=== PATIENT | female | born 1955 | race Caucasian/White ===

== ENCOUNTER → 2016-08-18 | Outpatient (CLI) | payer BC ==
[~2016-08-18] MED LIST: ACET-1256 PO; ALBI1INJ2 SC; ASPCH81X PO; ATV/1 PO; CLOP1TAB15 PO; DOCU1TAB6 PO; ERGO1CAP35 PO; FURO-85 PO; HYDR-5688 PO; INSDGI SC; INSPMPNVLG; ISOS30TA35 PO; ISOS60TA25 PO; LOSA1TAB PO; METF1000 PO; METO-157 PO; METO1TAB69 PO; NTRGSL/4 UT; NVLGI/PEN SC; ONDA8TAB6 PO; PANT1TAB48 PO; ROSU40TA PO; SERT-234 PO; SIME1CAP11 PO
== END | disposition home or self-care (01) ==
LOC: C.PATHSPEC 13:11
PROVIDERS: ATTEND Dermatology
DX: D23.5 Other benign neoplasm of skin of trunk (principal); L81.4 Other melanin hyperpigmentation; L57.8 Other skin changes due to chronic exposure to nonionizing radiation

== ENCOUNTER → 2016-10-14 | Outpatient (CLI) | payer BC ==
[~2016-10-14] MED LIST changes: +GADAVIST IV PRN
--- NOTE | 2016-10-14 16:40 | DIAGNOSTIC IMAGING REPORT ---
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 Appearance of the pituitary including bulky postprocedural appearance to the left lateral aspect of the pituitary with associated signal of the signal in homogeneity is similar. There are no new or interval findings. There is no displacement of the pituitary stock or optic chiasm. Negative linear enhancing region is similar. There is an underlying component of postprocedural fat necrosis. IMPRESSION: 1. Stable postprocedural changes to the sella and parasellar region. 2. Negative enhancing component of the inferior inferolateral aspect of the left sella and cavernous sinus is similar to prior. 3. No new or interval process. Electronically signed by: Christopher Myers M.D. 10/14/2016 4:39 PM Dictated Date/Time: 10/14/2016 4:34 PM
== END | disposition home or self-care (01) ==
LOC: C.MRI 15:12
PROVIDERS: ATTEND Internal Medicine Endocrinology, Diabetes & Metabolism
DX: E23.7 Disorder of pituitary gland, unspecified (principal)

== ENCOUNTER → 2016-10-29 | Outpatient (CLI) | payer BC ==
[~2016-10-29] MED LIST changes: -GADAVIST IV PRN; +METO100T44 PO; -METO1TAB69 PO
[2016-10-29 13:06] LABS: URIC ACID 2.4 mg/dl (2.6-7.2)
== END ==
LOC: C.LAB1850 11:06
PROVIDERS: ATTEND Internal Medicine Endocrinology, Diabetes & Metabolism
DX: N20.0 Calculus of kidney (principal); I10 Essential (primary) hypertension; R82.99 Other abnormal findings in urine

== ENCOUNTER → 2016-11-06 | Outpatient (CLI) | payer BC ==
[2016-11-06 13:59] LABS: CALCIUM URINE 14.8 mg/dl
== END | disposition home or self-care (01) ==
LOC: C.LABMFLN 08:54
PROVIDERS: ATTEND Internal Medicine Endocrinology, Diabetes & Metabolism
DX: M81.0 Age-related osteoporosis without current pathological fracture (principal)

== ENCOUNTER → 2016-12-07 | Outpatient (CLI) | payer BC ==
[2016-12-07 15:48] LABS: HEMATOCRIT 39.5 % (37-47); MEAN CELL VOLUME 83.7 fL (80-100); MEAN CORPUSCULAR HEMOGLOBIN 28.2 pg (25-34); MEAN CORPUSCULAR HGB CONC 33.7 g/dl (32-36); MEAN PLATELET VOLUME 10.6 fL (7.4-10.4); PLATELET COUNT 314 K/uL (130-400); RED BLOOD COUNT 4.72 M/uL (4.2-5.4); WHITE BLOOD COUNT 8.34 K/uL (4.8-10.8)
[2016-12-07 16:13] LABS: POTASSIUM 3.3 mmol/L (3.5-5.1)
== END | disposition home or self-care (01) ==
LOC: C.LAB 14:45
PROVIDERS: ATTEND Orthopaedic Surgery
DX: Z01.812 Encounter for preprocedural laboratory examination (principal); M65.4 Radial styloid tenosynovitis [de Quervain]

== ENCOUNTER → 2016-12-15 | Day surgery (SDC) | payer BC ==
[2016-12-10 09:10] VITALS: Ht 157.5 cm; Wt 77.3 kg
[~2016-12-15] VITALS: Ht 157.5 cm; Wt 77.3 kg
[~2016-12-15] MED LIST changes: +ATROPINE SULFATE 0.1 MG/ML 5ML SYR IV PRN; +BUPIVACAINE 0.5 % 5 MG/1 ML PF 10ML VIAL ONE; +CEFAZOLIN 1000MG/55 ML D5W IV SCH; -DOCU1TAB6 PO; +EpHEDrine SULFATE INJ 50 MG/ML AMP IV PRN; +FENTANYL CITRATE INJ 50 MCG/1 ML 2 ML VIAL ONE; -INSPMPNVLG; -ISOS30TA35 PO; +LACTATED RINGER'S 1000ML 1,000 ML IV SCH; +LIDOCAINE HCL 1% 20 ML VIAL ONE; +MIDAZOLAM HCL 1 MG/ML 2ML VIAL ONE; +NURSING VERBAL MED ORDER ONE; +ONDANSETRON INJ 2 MG/ML 2 ML VIAL IV PRN; +ONDANSETRON INJ 2 MG/ML 2 ML VIAL ONE; +OXYCODONE/ACETAMINOPHEN 5-325 TAB PO PRN; -PANT1TAB48 PO; +PROPOFOL IV EMULSION 10 MG/ML 20 ML VIAL IV ONE; +SODIUM CHLORIDE 0.9% 1000ML 1,000 ML IV SCH
--- NOTE | 2016-12-15 06:41 | History & Physical Bridge - [place] ---
H&P Re-Evaluation Bridge Note: I have examined the patient, reviewed the History & Physical and in the interval since the performance of the History & Physical I have noted the following changes of clinical significance: No changes noted
--- NOTE | 2016-12-15 07:37 | [facility] Post Operative Brief Note ---
Immediate Operative Summary Operative Date December 15, 2016. Pre-Operative Diagnosis Right Dequervain's Disease Post-Operative Diagnosis same as preop Procedure(s) Performed Right Dequervain's Release Surgeon Dr. Gusman Barrel Endshaker Adjuster Surgeon(s) MICHAEL Okeefe Estimated Blood Loss 0ml Findings ABOVE Specimens none per surgeon Anesthesia LOCAL IV SEDATION Complication(s) None Disposition
[2016-12-15 07:40] VITALS: TEMP 36.3
--- NOTE | 2016-12-15 07:43 | Discharge Instructions-SurgCtr ---
Discharge Instructions Date of Service December 15, 2016. Visit Reason for Visit: Right Dequervain's Disease Discharge Discharge Diagnosis / Problem: SAME ABOVE Discharge Goals Goal(s): Decrease discomfort, Improve function Medications Stopped Medications Name(s): Per pt stopped metformin wednesday as instructed. Activity Recommendations Activity Limitations: as noted below Lifting Limitations: gradually increase as tolerated Exercise/Sports Limitations: until after follow-up appointment Shower/Bathe: keep incision dry Anesthesia . Post Anesthesia Instructions: If you have had General Anesthesia or IV Sedation: * Do not drive today. * Resume driving when surgeon permits. * Do not make important decisions or sign legal documents today. * Call surgeon for: 1. Temperature elevations greater than 101 degrees F. 2. Uncontrollable pain. 3. Excessive bleeding. 4. Persistent nausea and vomiting. 5. Medication intolerance (nausea, vomiting or rash). * For nausea and vomiting use only clear liquids such as: tea, soda, bouillon until nausea subsides, then gradually increase diet as tolerated. * If you have any concerns or questions, call your surgeon's office. If physician is unavailable and it is an emergency, call 911 or go to the nearest emergency room. . Instructions / Follow-Up Instructions / Follow-Up MEDICATIONS: * Resume previous medications unless instructed otherwise by your surgeon. * Always take pain medication on a full stomach or with food to avoid upset stomach. * Do not drink alcohol or drive while taking narcotics. * Ibuprofen or Tylenol may be taken if narcotic not needed. SPECIAL CARE INSTRUCTIONS: __ None _X_ Keep extremity elevated and iced x 48 hours; apply ice 20-30 minutes 8-10 times/day. May remove at night. __ Sling __24 hrs/day __ Remove at night __ Shoulder Immobilizer __ 24 hrs/day __ Remove at night X_ Dressing __ Maintain until seen in office, may shower with plastic over site _X_ Remove dressings in 48-72 hours and then may shower _X_ Cover incisions with band-aids after showering __ Do not remove steri-strips Call physician if chills or temperature rises above 102 degrees or pain unrelieved by prescribed pain medications at . . Diet Recommendations Home Diet: resume previous diet Procedures Procedures Performed: Right Dequervain's Release Pending Studies Studies pending at discharge: no Medical Emergencies . Who to Call and When: Medical Emergencies: If at any time you feel your situation is an emergency, please call 911 immediately. . Non-Emergent Contact Non-Emergency issues call your: Primary Care Provider . . "Provider Documentation" section prepared by Jose Daniel Shepherd. .
--- NOTE | 2016-12-15 07:48 | Anesthesiology Progress Note ---
Anesthesia Post Op Note Date & Time December 15, 2016 at 07:48 Vital Signs Pain Intensity: 0 Vital Signs Past 12 Hours Date Time Temp Pulse Resp B/P Pulse Ox O2 Delivery O2 Flow Rate FiO2 12/15/16 06:42 36.3 69 20 131/80 95 Room Air Notes Mental Status: alert / awake / arousable, participated in evaluation Pt Amnestic to Procedure: Yes Nausea / Vomiting: adequately controlled Pain: adequately controlled Airway Patency, RR, SpO2: stable & adequate BP & HR: stable & adequate Hydration State: stable & adequate Anesthetic Complications: no major complications apparent
--- NOTE | 2016-12-15 07:52 | Anesthesia Progress Nt - [facility] ---
Anesthesia Post Op Note Date & Time December 15, 2016 at 07:52 Vital Signs Pain Intensity: 0 Vital Signs Past 12 Hours Date Time Temp Pulse Resp B/P Pulse Ox O2 Delivery O2 Flow Rate FiO2 12/15/16 07:40 36.3 92 12 114/72 96 Room Air 12/15/16 06:42 36.3 69 20 131/80 95 Room Air Notes Mental Status: alert / awake / arousable, participated in evaluation Pt Amnestic to Procedure: Yes Nausea / Vomiting: adequately controlled Pain: adequately controlled Airway Patency, RR, SpO2: stable & adequate BP & HR: stable & adequate Hydration State: stable & adequate Anesthetic Complications: no major complications apparent
[2016-12-15 08:15] VITALS: BP 120/75; PULSE 83; O2SAT 98
--- NOTE | 2016-12-15 08:27 | OPERATIVE REPORT ---
DATE OF OPERATION: 12/15/2016 PREOPERATIVE DIAGNOSIS: Right chronic de Quervain's syndrome. POSTOPERATIVE DIAGNOSIS: Same. PROCEDURE: Release first dorsal compartment, right wrist. SURGEON: Dr. Gusman. SPREADER: MICHAEL Shepherd. ANESTHESIOLOGIST: Dr. Navarro. ANESTHESIA: Local with IV sedation. DRAINS: None. COMPLICATIONS: None. CONDITION: The patient tolerated the procedure well and returned to the recovery room in apparent satisfactory condition. INDICATIONS FOR SURGERY: Elizabeth is a 61-year-old female well-known to me having a left de Quervain's syndrome surgery before, who presents back with her right wrist. She has had some shots as conservative care. Would like to go ahead and proceed with surgery. Procedure, expected outcomes and side effects, and risks were all explained in detail. PROCEDURE: The patient was taken to the OR at which time she was placed supine on the operating table, and given IV sedation by the anesthesia department. Right arm and hand was prepped and draped in usual sterile fashion for surgery. We marked out a transverse incision over the first dorsal compartment and exsanguinated the arm, put a forearm tourniquet up to 250 mmHg. Using a 15-blade, we incised the skin and dissected down to the first dorsal compartment. Using a 15-blade and tenotomy scissors, we decompressed the compartment. There was a lot of synovium thickened tissue around the tendons. Each tendon was identified and made sure there was no individual septi and septa between them. There was a bit of fluid as we released the compartment initially. Wound then was copiously irrigated. The skin was closed with interrupted 4-0 nylon sutures. Marcaine without epinephrine was placed in skin edges. Placed a sterile dressing of Xeroform, 4 x 4, Sof-Rol and Jonathan bandage and returned back to recovery room in apparent satisfactory condition. I attest to the content of the Intraoperative Record and any orders documented therein. Any exceptio ns are noted below.
== END | disposition home or self-care (01) ==
LOC: X.SURG 06:32
PROVIDERS: ATTEND Orthopaedic Surgery
DX: M65.4 Radial styloid tenosynovitis [de Quervain] (principal); I10 Essential (primary) hypertension; E11.9 Type 2 diabetes mellitus without complications; Z79.02 Long term (current) use of antithrombotics/antiplatelets; Z98.890 Other specified postprocedural states

== ENCOUNTER → 2017-01-01 | Outpatient (CLI) | payer BC ==
[~2017-01-01] MED LIST changes: -ATROPINE SULFATE 0.1 MG/ML 5ML SYR IV PRN; -BUPIVACAINE 0.5 % 5 MG/1 ML PF 10ML VIAL ONE; -CEFAZOLIN 1000MG/55 ML D5W IV SCH; -EpHEDrine SULFATE INJ 50 MG/ML AMP IV PRN; -FENTANYL CITRATE INJ 50 MCG/1 ML 2 ML VIAL ONE; -LACTATED RINGER'S 1000ML 1,000 ML IV SCH; -LIDOCAINE HCL 1% 20 ML VIAL ONE; -MIDAZOLAM HCL 1 MG/ML 2ML VIAL ONE; -NURSING VERBAL MED ORDER ONE; -ONDANSETRON INJ 2 MG/ML 2 ML VIAL IV PRN; -ONDANSETRON INJ 2 MG/ML 2 ML VIAL ONE; -OXYCODONE/ACETAMINOPHEN 5-325 TAB PO PRN; -PROPOFOL IV EMULSION 10 MG/ML 20 ML VIAL IV ONE; -SODIUM CHLORIDE 0.9% 1000ML 1,000 ML IV SCH
== END | disposition home or self-care (01) ==
LOC: C.LABMFLN 08:01
PROVIDERS: ATTEND Internal Medicine Endocrinology, Diabetes & Metabolism
DX: E23.7 Disorder of pituitary gland, unspecified (principal)

== ENCOUNTER → 2017-03-02 | Outpatient (CLI) | payer BC ==
[~2017-03-02] MED LIST changes: -METO100T44 PO; +METO1TAB69 PO
[2017-03-02 13:27] LABS: ESTIMATED AVERAGE GLUCOSE 246 mg/dl; HA1C FLAG Normal (Normal)
[2017-03-02 13:30] LABS: BLOOD UREA NITROGEN 10 mg/dl (7-18); CALCIUM 8.4 mg/dl (8.5-10.1); CARBON DIOXIDE 27 mmol/L (21-32); CHLORIDE 106 mmol/L (98-107); CREATININE 0.77 mg/dl (0.60-1.20); GLUCOSE 232 mg/dl (70-99); MAGNESIUM 2.3 mg/dl (1.8-2.4); POTASSIUM 3.6 mmol/L (3.5-5.1); SODIUM 140 mmol/L (136-145)
[2017-03-02 13:34] LABS: CHOLESTEROL 56 mg/dl (0-200); CHOLESTEROL/HDL RATIO 2.4; HDL CHOLESTEROL 23 mg/dl; LDL CHOLESTEROL CALCULATED 4 mg/dl; TRIGLYCERIDES 143 mg/dl (0-150); VERY LOW DENSITY LIPOPROT CALC 29 mg/dl
== END | disposition home or self-care (01) ==
LOC: C.LABMFLN 11:29
PROVIDERS: ATTEND Internal Medicine Endocrinology, Diabetes & Metabolism
DX: M81.0 Age-related osteoporosis without current pathological fracture (principal); E11.9 Type 2 diabetes mellitus without complications; E78.5 Hyperlipidemia, unspecified; N20.0 Calculus of kidney; I25.10 Atherosclerotic heart disease of native coronary artery without angina pectoris; I51.9 Heart disease, unspecified

== ENCOUNTER → 2017-04-05 | Outpatient (CLI) | payer BC ==
[2017-04-05 13:42] LABS: BLOOD UREA NITROGEN 11 mg/dl (7-18); BUN/CREATININE RATIO 11.7 (10-20); CREATININE 0.92 mg/dl (0.60-1.20)
== END | disposition home or self-care (01) ==
LOC: C.LABMFLN 09:26
PROVIDERS: ATTEND Urology
DX: R31.0 Gross hematuria (principal)

== ENCOUNTER → 2017-04-07 | Outpatient (CLI) | payer BC ==
[~2017-04-07] MED LIST changes: +OPTIRAY 320 IV PRN
--- NOTE | 2017-04-07 17:09 | DIAGNOSTIC IMAGING REPORT ---
CT OF THE ABDOMEN AND PELVIS WITH AND WITHOUT CONTRAST HEMATURIA PROTOCOL CLINICAL HISTORY: Gross hematuria. COMPARISON STUDY: CT of the abdomen and pelvis January 08, 2017. TECHNIQUE: Unenhanced and split bolus phase imaging of the abdomen and pelvis was performed. Injection of 116 cc Optiray 320 IV was uneventful. A dose lowering technique was utilized adhering to the principles of ALARA. CT DOSE: 1923.38 mGycm FINDINGS: Small bilateral renal calculi measure up to 3 mm. There are no ureteral calculi. No hydronephrosis or hydroureter is present. Note is made of a 1.1 cm cyst arising from the upper pole of the left kidney. There is no solid renal lesion. No upper tract urothelial lesion is identified. No bladder mass is identified although the bladder is incompletely opacified. There is no biliary ductal dilatation status post cholecystectomy. Prominent upper abdominal lymph nodes are unchanged since exam of February 03, 2012. There may be fatty infiltration of the liver. The spleen, adrenal glands and pancreas are unremarkable. There is no pancreatic ductal dilatation. Mild mesenteric infiltration with small associated lymph nodes is unchanged. There is sigmoid diverticulosis without evidence for acute diverticulitis. There are no suspicious osseous lesions. There is no ascites. IMPRESSION: 1. No upper tract urothelial lesion. Suboptimal evaluation of the bladder given incomplete opacification but no bladder mass identified. 2. Small bilateral renal calculi. No ureteral calculi or hydronephrosis. 3. No acute process within the abdomen or pelvis. Electronically signed by: Deepak Liang M.D. 04/07/2017 5:08 PM Dictated Date/Time: 04/07/2017 5:00 PM
== END | disposition home or self-care (01) ==
LOC: C.CTS 16:00
PROVIDERS: ATTEND Urology
DX: R31.0 Gross hematuria (principal)

== ENCOUNTER → 2017-04-08 | Outpatient (CLI) | payer BC ==
[~2017-04-08] MED LIST changes: -OPTIRAY 320 IV PRN
== END | disposition home or self-care (01) ==
LOC: C.PATHSPEC 17:43
PROVIDERS: ATTEND Urology
DX: N30.21 Other chronic cystitis with hematuria (principal)

== ENCOUNTER → 2017-04-29 | Outpatient (CLI) | payer BC ==
[2017-04-29 13:46] LABS: ALT/SGPT 40 U/L (12-78); AST/SGOT 40 U/L (15-37); BLOOD UREA NITROGEN 10 mg/dl (7-18); BUN/CREATININE RATIO 10.4 (10-20); CALCIUM 9.6 mg/dl (8.5-10.1); CARBON DIOXIDE 30 mmol/L (21-32); CHLORIDE 99 mmol/L (98-107); GLUCOSE 133 mg/dl (70-99); POTASSIUM 3.2 mmol/L (3.5-5.1); SODIUM 138 mmol/L (136-145)
[2017-04-29 13:49] LABS: ALKALINE PHOSPHATASE 98 U/L (45-117)
== END | disposition home or self-care (01) ==
LOC: C.LABMFLN 10:07
PROVIDERS: ATTEND Internal Medicine Endocrinology, Diabetes & Metabolism
DX: I10 Essential (primary) hypertension (principal); M81.0 Age-related osteoporosis without current pathological fracture; E53.8 Deficiency of other specified B group vitamins

== ENCOUNTER → 2017-06-21 | Outpatient (CLI) | payer BC ==
[~2017-06-21] MED LIST changes: -HYDR-5688 PO; +METO100T44 PO; -METO1TAB69 PO
[2017-06-21 13:07] LABS: ESTIMATED AVERAGE GLUCOSE 246 mg/dl; HA1C FLAG Normal (Normal)
[2017-06-21 13:18] LABS: ALT/SGPT 34 U/L (12-78); BLOOD UREA NITROGEN 16 mg/dl (7-18); BUN/CREATININE RATIO 19.7 (10-20); CALCIUM 9.1 mg/dl (8.5-10.1); CARBON DIOXIDE 29 mmol/L (21-32); CHLORIDE 101 mmol/L (98-107); CREATININE 0.79 mg/dl (0.60-1.20); GLUCOSE 134 mg/dl (70-99); MAGNESIUM 2.3 mg/dl (1.8-2.4); POTASSIUM 3.2 mmol/L (3.5-5.1); SODIUM 139 mmol/L (136-145)
[2017-06-21 13:25] LABS: ALKALINE PHOSPHATASE 85 U/L (45-117); AST/SGOT 25 U/L (15-37)
[2017-06-21 14:37] LABS: RATIO 192.5 mcg/mg (0-30.0)
== END | disposition home or self-care (01) ==
LOC: C.LABMFLN 07:56
PROVIDERS: ATTEND Internal Medicine Endocrinology, Diabetes & Metabolism
DX: E87.6 Hypokalemia (principal); E23.7 Disorder of pituitary gland, unspecified; E11.9 Type 2 diabetes mellitus without complications; M81.0 Age-related osteoporosis without current pathological fracture

== ENCOUNTER → 2017-06-22 | Outpatient (CLI) | payer BC | END | disposition home or self-care (01) | LOC: C.LAB1850 14:24 | PROVIDERS: ATTEND Internal Medicine Endocrinology, Diabetes & Metabolism | DX: E11.9 Type 2 diabetes mellitus without complications (principal) ==